=== PATIENT | male | born 1960 | race Caucasian/White ===

== ENCOUNTER 2023-06-14 06:51 | Day surgery (SDC) | payer OTHER, SELFPAY ==
--- NOTE | 2023-06-14 07:29 | PCM.HP.BLA ---
History and Physical Date of Admission: 06/14/23 Intake Vital Signs 06/06/2309:24 Height 6 ft Weight: 225 lb 6 oz BMI 30.5 BP 158/88 H Blood Pressure Location Rt brachial Position Sitting Respiration 16 Pulse 83 Pulse Source Monitor Temp 97.3 F L Temp Source Tympanic Pulse Oximetry (%) 95 Oxygen Delivery Method room air Intake Visit Reasons: COLONOSCOPY Chief Complaint: COLONOSCOPY Allergies No Known Allergies Allergy (Unverified 06/06/23 09:25) Medications empagliflozin 10 mg tablet (Jardiance) 10 mg PO DAILY 06/06/23 [History Confirmed 06/06/23] metformin 500 mg tablet 500 mg PO DAILY 06/06/23 [History Confirmed 06/06/23] PFSH Medical History (Updated 06/06/23 @ 09:[address] Casimiro Sabillon MD) Colon cancer Diabetes Surgical History (Updated 06/06/23 @ 09:23 by Callie Adams) History of appendectomy HPI HPI HPI: Patient is a 63-year-old male here for colonoscopy. He had a rectal cancer in 2013 and had resection. His last colonoscopy was 5 years ago and was normal. The patient denies any abdominal pain or blood in the stools. ROS General General: Yes fatigue and colon cancer; No weight change, appetite, breast cancer or weakness HEENT HEENT: No difficulty swallowing, eye injury, eye surgery, swollen glands or hoarseness Endo Endocrine: Yes diabetes mellitus; No thyroid disease, thyroid cancer, Hair loss, heat intolerance or cold intolerance Skin Skin: Yes rash; No changing moles Breast Breast: No left breast lump, right breast lump, nipple discharge, breast pain, abnormal mammogram, abnormal US or breast enlargement Musc Musculoskeletal: No back problems, arthritis, rheumatoid arthritis, gout or joint pain Cardio Cardiovascular: No murmur, pacemaker, heart disease, atrial fibrillation, high blood pressure, heart attack, heart stent, palpitations, shortness of breat with exertion or chest pain Psych Psychiatric: No depression, anxiety or hearing voices Resp Respiratory: No shortness of breath, No sleep apnea, No cough, No COPD, No asthma, No emphysema and No wheezing Gastro Gastrointestinal: No abdominal pain, No nausea or vomiting, No diarrhea, Yes constipation, No blood in stool, No acid reflux, Yes hemorrhoids, No ulcers, No gallbladder problem and No black,tarry stools Jamil Hematologic: No blood thinners, No blood disorders, No bleeding, No anemia and No blood clots Neuro Neurologic: No system reviewed and no additional complaints, except as documented, No as per HPI, No abnormal gait, No abnormal hearing, No abnormal movements, No abnormal speech, No behavioral changes, No burning sensations, No confusion, No convulsions, No disequilibrium, No dizziness, No localized weakness, No frequent falls, No headache(s), No lack of coordination, No loss of vision, No memory loss, No numbness, No other visual disturbances, No radicular pain, No restless legs, No sensory deficit, No syncope, No tingling, No tremor(s), No weakness and No other Exam Const General: cooperative Orientation: alert and oriented x3 HENMT Head: normal to inspection Neck Neck: normal visual inspection and full ROM Chest Chest palpation & inspection: normal inspection of the chest Resp Effort & Inspection: normal respiratory effort Auscultation: clear to auscultation bilaterally Cardio Rate: regular rate Rhythm: regular rhythm GI Inspection: non-distended Palpation: soft and nontender Skin General: no rashes or lesions noted Neuro General: patient alert and patient oriented x3 Extrem General: full ROM Psych Appearance: grossly normal Mental Status: mental status grossly normal Assessment and Plan Assessment and Plan (1) History of colon cancer: Status: Acute Plan: The patient has a history of colon cancer and requires surveillance colonoscopy. His last colonoscopy was 5 years ago. I explained endoscopy in detail to the patient. I explained the risks including but not limited to stroke or heart attack with anesthesia, perforation of the GI tract, bleeding, infection. I explained that any of these could necessitate further emergency surgery. The patient understands and all questions were answered sufficiently. The patient wishes to proceed with procedure. Casimiro Sabillon MD Pager: [facility] [address] [place] [address], [address] [place] [address] Office: I have examined the patient and the H&P has been reviewed. There are no clinical changes since date of exam.
[2023-06-14 07:52] VITALS: BP 147/89; PULSE 71; RESP 16; TEMP 36.8; O2SAT 96; BMI 29.8
[2023-06-14] MEDS: Lactated Ringers 1,000 ML 15 ML IV (07:55)
[2023-06-14 08:15] LABS: Bedside Glucose 114 mg/dL (74-106)
[2023-06-14 09:09] VITALS: BP 106/61; BP 147/89; PULSE 76; RESP 18; TEMP 36.6; O2SAT 94
--- NOTE | 2023-06-14 09:10 | OP.CCLET_ITS ---
06/14/2023 Shree Brenner Re : Colonoscopy procedure for Jose R Mcallisterr Jordin This procedure was performed on Wednesday, June 14, 2023. My impressions and recommendations are as follows: Impressions : - The entire examined colon is normal on direct and retroflexion views. - No specimens collected. Recommendations : - Discharge patient to home. - Resume previous diet. - Continue present medications. - Repeat colonoscopy in 5 years for surveillance. My findings are described in the full procedure note, which is enclosed. If I can be of further assistance, please feel free to contact me at Doctor phone number(s): , Work: . Sincerely, Casimiro Sabillon MD 06/14/2023 9:09:58 AM This report has been signed electronically.
--- NOTE | 2023-06-14 09:10 | OP.COLON_ITS ---
Patient Name: Jose R Ragland Procedure Date: 06/14/2023 8:45 AM Date of : 1960 Age: 63 Procedure: Colonoscopy Indications: High risk colon cancer surveillance: Personal history of colon cancer Providers: Casimiro Sabillon MD Referring MD: Shree Brenner Medicines: Monitored Anesthesia Care Patient Profile: This is a 63 year old male. Refer to note in patient chart for documentation of history and physical. Last Colonoscopy: 5 years ago. Complications: No immediate complications. Procedure: Pre-Anesthesia Assessment: - Prior to the procedure, a History and Physical was performed, and patient medications and allergies were reviewed. The patient's tolerance of previous anesthesia was also reviewed. The risks and benefits of the procedure and the sedation options and risks were discussed with the patient. All questions were answered, and informed consent was obtained. Prior Anticoagulants: The patient has taken no anticoagulant or antiplatelet agents. After reviewing the risks and benefits, the patient was deemed in satisfactory condition to undergo the procedure. After I obtained informed consent, the scope was passed under direct vision. Throughout the procedure, the patient's blood pressure, pulse, and oxygen saturations were monitored continuously. The Colonoscope was introduced through the anus and advanced to the cecum, identified by appendiceal orifice and ileocecal valve. The colonoscopy was performed without difficulty. The patient tolerated the procedure well. The quality of the bowel preparation was good. The ileocecal valve, appendiceal orifice, and rectum were photographed. Scope In: 8:57:29 AM Scope Withdrawal Time 0 hours 4 minutes 22 seconds Scope Out: 9:04:15 AM Total Procedure Duration Time 0 hours 6 minutes 46 seconds Findings: The entire examined colon appeared normal on direct and retroflexion views. Impression: - The entire examined colon is normal on direct and retroflexion views. - No specimens collected. Recommendation: - Discharge patient to home. - Resume previous diet. - Continue present medications. - Repeat colonoscopy in 5 years for surveillance. Procedure Code(s): --- Professional --- 14392, Colonoscopy, flexible; diagnostic, including collection of specimen(s) by brushing or washing, when performed (separate procedure) Diagnosis Code(s): --- Professional --- Z85.038, Personal history of other malignant neoplasm of large intestine CPT copyright 2021 [employer]. All rights reserved. The codes documented in this report are preliminary and upon inspector repairer review may be revised to meet current compliance requirements. Casimiro Sabillon MD 06/14/2023 9:09:58 AM This report has been signed electronically. Number of Addenda: 0 Note Initiated On: 06/14/2023 8:45 AM
[2023-06-14 09:14] VITALS: BP 102/66; BP 147/89; PULSE 73; RESP 14; O2SAT 93
[2023-06-14 09:20] VITALS: BP 105/60; BP 147/89; PULSE 70; RESP 18; O2SAT 94
[2023-06-14 09:25] VITALS: BP 128/75; BP 147/89; PULSE 73; RESP 18; TEMP 36.7; O2SAT 93
[2023-06-14 09:51] VITALS: BP 147/89
== END 2023-06-14 10:04 | disposition home or self-care (01) ==
LOC: EN 06:52 → AC 06:53
PROVIDERS: PCP Family Medicine; Referring Provider Family Medicine; Visit Provider Surgery
PROC: 0DJD8ZZ Inspection of Lower Intestinal Tract, Via Natural or Artificial Opening Endoscopic (ICD-10-PCS; CPT 45378; principal; 2023-06-14 08:25)
DX: Z12.11 Encounter for screening for malignant neoplasm of colon (principal); E11.9 Type 2 diabetes mellitus without complications; Z79.84 Long term (current) use of oral hypoglycemic drugs; Z85.038 Personal history of other malignant neoplasm of large intestine
CPT/HCPCS: 45378; 82962; J7120; J2405